=== PATIENT | female | born 1980 | race African-American/Black ===

== ENCOUNTER 2017-03-09 16:10 | Emergency (ER) | payer OTHER ==
[~2017-03-09] VITALS: Ht 167.6 cm; Wt 74.8 kg
[~2017-03-09 16:10] MED LIST: COLACE100 MG PO; FLEXERIL10 MG PO; GLYBURIDE2.5 MG PO; IBUPROFEN800 MG PO; NAPROXEN500 MG PO; PERCOCET 5/31 TABLET PO; PREDNISONE20 MG PO; TRAMADOL HCL50 MG PO; VITAFOL-OB+DHA1 EACH PO
[2017-03-09 16:44] VITALS: BP 129/96
== END 2017-03-09 16:46 | disposition home or self-care (01) ==
LOC: EME 16:10
DX: S61.412A Laceration without foreign body of left hand, initial encounter (principal); W26.0XXA Contact with knife, initial encounter; Z23 Encounter for immunization
CPT/HCPCS: 99281; 99283

== ENCOUNTER 2017-06-27 08:57 | Day surgery (SDC) | payer BC ==
[~2017-06-27] VITALS: Ht 170.2 cm; Wt 73.9 kg
[~2017-06-27 08:57] MED LIST changes: +ZANAFLEX2 M1 PO
== END 2017-06-27 10:40 | disposition home or self-care (01) ==
LOC: PAIN 08:57 → SDC 09:15 → PAIN 10:40
DX: M47.26 Other spondylosis with radiculopathy, lumbar region (principal); F41.9 Anxiety disorder, unspecified; G89.29 Other chronic pain
CPT/HCPCS: J1030; J2250; J3010; S0020

== ENCOUNTER 2017-07-04 10:49 | Day surgery (SDC) | payer BC ==
[~2017-07-04] VITALS: Ht 167.6 cm; Wt 77.1 kg
[~2017-07-04 10:49] MED LIST changes: +ULTRAM50 MG PO
== END 2017-07-04 12:35 | disposition home or self-care (01) ==
LOC: PAIN 10:49
PROC: 015B3ZZ Destruction of Lumbar Nerve, Percutaneous Approach (ICD-10-PCS; principal; 2017-07-04)
DX: M47.26 Other spondylosis with radiculopathy, lumbar region (principal); G89.29 Other chronic pain; F41.9 Anxiety disorder, unspecified; M51.16 Intervertebral disc disorders with radiculopathy, lumbar region; Z88.5 Allergy status to narcotic agent
CPT/HCPCS: J2250; J3010; S0020

== ENCOUNTER 2017-09-26 08:07 | Day surgery (SDC) | payer BC ==
[~2017-09-26] VITALS: Ht 167.6 cm; Wt 81.6 kg
== END 2017-09-26 10:00 | disposition home or self-care (01) ==
LOC: PAIN 08:07 → SDC 08:30 → PAIN 08:30
DX: M47.26 Other spondylosis with radiculopathy, lumbar region (principal); M51.16 Intervertebral disc disorders with radiculopathy, lumbar region; G89.29 Other chronic pain; M54.5 Low back pain; M48.061 Spinal stenosis, lumbar region without neurogenic claudication; M54.2 Cervicalgia; M79.1 Myalgia; F41.9 Anxiety disorder, unspecified
CPT/HCPCS: J1030; J2250; J3010; S0020

== ENCOUNTER 2017-10-03 08:13 | Day surgery (SDC) | payer BC ==
[~2017-10-03] VITALS: Ht 167.6 cm; Wt 81.8 kg
== END 2017-10-03 09:45 | disposition home or self-care (01) ==
LOC: PAIN 08:13 → SDC 08:30 → PAIN 09:45
DX: M47.26 Other spondylosis with radiculopathy, lumbar region (principal); M51.16 Intervertebral disc disorders with radiculopathy, lumbar region; G89.29 Other chronic pain; M48.061 Spinal stenosis, lumbar region without neurogenic claudication; F41.8 Other specified anxiety disorders; M54.2 Cervicalgia; Z79.891 Long term (current) use of opiate analgesic
CPT/HCPCS: J1030; J2250; J3010; S0020

== ENCOUNTER 2018-01-22 21:44 | Emergency (ER) | payer OTHER ==
[~2018-01-22] VITALS: Ht 170.2 cm; Wt 82.0 kg
[2018-01-23 00:22] VITALS: BP 136/77
[2018-01-24] MEDS ORDERED: TRETINOIN20 G3 TP (17:18)
[2018-01-24] MEDS ORDERED: IBUPROFEN800 MG PO (17:19)
[2018-01-24] MEDS ORDERED: LIDOCAINE700 MG TP (17:20)
== END 2018-01-23 00:23 | disposition home or self-care (01) ==
LOC: EME 21:44
PROC: 0JCJ3ZZ Extirpation of Matter from Right Hand Subcutaneous Tissue and Fascia, Percutaneous Approach (ICD-10-PCS; principal; 2018-01-22)
DX: S61.441A Puncture wound with foreign body of right hand, initial encounter (principal); W26.8XXA Contact with other sharp object(s), not elsewhere classified, initial encounter; W45.8XXA Other foreign body or object entering through skin, initial encounter; W22.8XXA Striking against or struck by other objects, initial encounter
CPT/HCPCS: 73130; 99281; 99283

== ENCOUNTER 2018-01-24 14:55 | Inpatient (IN) | payer OTHER ==
[~2018-01-24] VITALS: Ht 170.2 cm; Wt 83.5 kg
[2018-01-24 16:25] LABS: HEMATOCRIT 33.7 % (36.0-46.0); HEMOGLOBIN 11.1 G/DL (11.9-15.5); MCHC 32.9 G/DL (30.0-36.0); RBC DIS.WIDTH-CV 13.1 % (11.8-14.6); RBC DIS.WIDTH-SD 42.3 % (39-53); RED BLOOD COUNT 3.83 M/uL (3.80-5.20); WHITE BLOOD COUNT 8.3 K/uL (4.1-10.2)
[2018-01-24 16:37] LABS: CHLORIDE 107 mEq/L (99-109); POTASSIUM 3.4 mEq/L (3.7-5.4); SODIUM 140 mEq/L (136-147)
[2018-01-24 16:38] LABS: GLUCOSE 81 mg/dL (70-99)
[2018-01-24 16:42] LABS: CREATININE 0.6 mg/dL (0.6-1.3); GFR ESTIMATE (CALCULATED) > 59 mL/min/
[2018-01-24 16:43] LABS: UREA NITROGEN (BUN) 7 mg/dL (9-23)
[2018-01-24] MEDS ORDERED: TRETINOIN20 G3 TP (17:18)
[2018-01-24] MEDS ORDERED: IBUPROFEN800 MG PO (17:19)
[2018-01-24] MEDS ORDERED: LIDOCAINE700 MG TP (17:20)
[2018-01-24 17:26] LABS: PLAT.SUFFICIENCY ADEQUATE; PLATELET COUNT 225 K/uL (156-360)
[2018-01-24 20:23] VITALS: BP 144/87
[2018-01-25 00:19] VITALS: BP 151/74
[2018-01-25 04:41] VITALS: BP 154/68
[2018-01-25 05:49] LABS: HEMATOCRIT 31.9 % (36.0-46.0); HEMOGLOBIN 10.1 G/DL (11.9-15.5); MCH 27.9 PG (29.0-34.0); MCHC 31.7 G/DL (30.0-36.0); MCV 88.1 FL (83-99); RBC DIS.WIDTH-SD 41.8 % (39-53); RED BLOOD COUNT 3.62 M/uL (3.80-5.20); WHITE BLOOD COUNT 9.9 K/uL (4.1-10.2)
[2018-01-25 06:20] LABS: PLAT.SUFFICIENCY ADEQUATE; PLATELET COUNT 237 K/uL (156-360)
[2018-01-25 06:22] LABS: CHLORIDE 107 MEQ/L (99-109); CREATININE 0.6 MG/DL (0.6-1.3); GFR ESTIMATE (CALCULATED) > 59 mL/min/; GLUCOSE 140 mg/dL (70-99); SODIUM 137 MEQ/L (136-147); UREA NITROGEN (BUN) 8 mg/dL (9-23)
[2018-01-25 08:08] VITALS: BP 157/84
[2018-01-25 11:31] VITALS: BP 148/70
[2018-01-25 16:20] VITALS: BP 151/67
[2018-01-25 21:04] VITALS: BP 142/81
[2018-01-26 00:06] VITALS: BP 146/81
[2018-01-26 08:16] VITALS: BP 139/83
[2018-01-26] MEDS ORDERED: AUGMENTIN875 MG PO (11:28)
[2018-01-26] MEDS ORDERED: ENDOCET 5-3251 EACH PO (11:28)
== END 2018-01-26 14:19 | disposition home or self-care (01) | DRG 603 ==
LOC: EME 14:55 → EDOF 18:12 → ENRESERV 18:16 → 3EAST 20:22
PROVIDERS: Hospitalist; Physician Assistant
PROC: 0HCFXZZ Extirpation of Matter from Right Hand Skin, External Approach (ICD-10-PCS; principal; 2018-01-25)
DX: L03.113 Cellulitis of right upper limb (principal); E87.6 Hypokalemia; D64.9 Anemia, unspecified; F41.9 Anxiety disorder, unspecified; S61.431D Puncture wound without foreign body of right hand, subsequent encounter; Z88.5 Allergy status to narcotic agent
CPT/HCPCS: 73130; 76882; 80048; 85027; 87070; 87075; 87205; 88300; 99281; 99283; 99285; J0131; J0295; J1100; J1170; J1885; J2250; J2270; J2405; J2920; J3010; J7030; J7050; Q0177; S0020; S0028

== ENCOUNTER 2018-03-20 11:10 | Day surgery (SDC) | payer OTHER ==
[~2018-03-20] VITALS: Ht 170.2 cm; Wt 80.7 kg
[~2018-03-20 11:10] MED LIST changes: +AUGMENTIN875 MG PO; +ENDOCET 5-3251 EACH PO; +LIDOCAINE700 MG TP; +RETIN-A 0.01%15 GM TP; +TRETINOIN20 G3 TP
[2018-03-20 12:21] VITALS: BP 128/74
[2018-03-20 15:40] VITALS: BP 135/76
[2018-03-20 16:30] VITALS: BP 118/67
== END 2018-03-20 17:08 | disposition home or self-care (01) ==
LOC: SDC
PROC: 0DBQ7ZX Excision of Anus, Via Natural or Artificial Opening, Diagnostic (ICD-10-PCS; principal; 2018-03-20)
DX: K62.0 Anal polyp (principal); K64.4 Residual hemorrhoidal skin tags; K59.00 Constipation, unspecified; Z88.8 Allergy status to other drugs, medicaments and biological substances
CPT/HCPCS: 88304; J0131; J0690; J1170; J2250; J2405; J3010; Q0175

== ENCOUNTER 2018-04-10 08:39 | Day surgery (SDC) | payer OTHER ==
[~2018-04-10] VITALS: Ht 170.2 cm; Wt 80.7 kg
[2018-04-10] MEDS ORDERED: TRAMADOL HCL50 MG PO (08:58)
== END 2018-04-10 10:15 | disposition home or self-care (01) ==
LOC: PAIN 08:39 → SDC 09:00 → PAIN 10:15
DX: M54.16 Radiculopathy, lumbar region (principal); M51.16 Intervertebral disc disorders with radiculopathy, lumbar region; M46.93 Unspecified inflammatory spondylopathy, cervicothoracic region
CPT/HCPCS: J1100; J2250

== ENCOUNTER 2018-05-08 08:27 | Day surgery (SDC) | payer OTHER ==
[~2018-05-08] VITALS: Ht 170.2 cm; Wt 80.7 kg
== END 2018-05-08 10:12 | disposition home or self-care (01) ==
LOC: PAIN 08:27 → SDC 09:00 → PAIN 09:00
DX: M51.16 Intervertebral disc disorders with radiculopathy, lumbar region (principal); M79.1 Myalgia; F41.9 Anxiety disorder, unspecified; M46.96 Unspecified inflammatory spondylopathy, lumbar region; Z79.891 Long term (current) use of opiate analgesic
CPT/HCPCS: J1100; J2250; J3010